=== PATIENT | male | born 1950 | race Caucasian/White ===

== ENCOUNTER 2017-09-25 06:40 | Day surgery (SDC) | payer MEDICARE, OTHER ==
[~2017-09-25] VITALS: Ht 170.2 cm; Wt 111.1 kg
[~2017-09-25 06:40] MED LIST: LISINOPRIL-HCT1 EACH PO; SIMVASTATIN40 MG PO
--- NOTE | 2017-09-25 09:33 | NUR ---
09/25/17 0933 Roseann Rothman 0925 PT ARRIVED IN PACU WIDE AWAKE. NO C/O'S.
[2017-09-25] MEDS ORDERED: OXYCODON-ACETA1 EAC2 PO (09:37)
[2017-09-25] MEDS ORDERED: IBUPROFEN600 MG PO (09:37)
[2017-09-25] MEDS ORDERED: MAPAP325 MG PO (09:37)
--- NOTE | 2017-09-26 22:41 | EKG ---
[facility] [address] [facility] [place] [address] Signed Normal sinus rhythm Normal ECG No previous ECGs available Confirmed by ARABELLA VÁZQUEZ MD ([id number]) on 09/26/2017 10:41:16 PM Electronically Signed By: ARABELLA VÁZQUEZ MD 09/26/17 2241 PATIENT NAME: JAVIER SIDHU Electrocardiogram DATE OF : 52 PHYSICIAN: ARABELLA VÁZQUEZ MD REPORT #: [id number] REPORT IS CONFIDENTIAL AND NOT TO BE RELEASED WITHOUT AUTHORIZATION
--- NOTE | 2017-10-11 14:11 | OR ---
[facility] [address] [facility] [place] [address] Signed DATE OF OPERATION: 09/25/2017 SURGEON: Javier Hernandes MD PREOPERATIVE DIAGNOSIS: Right posterior neck mass . POSTOPERATIVE DIAGNOSIS: Right posterior neck mass subfascial 4.5 cm, subfascial to posterior neck muscle compartment. PROCEDURE: Excision of right posterior subfascial soft tissue mass of neck with closure. ANESTHESIA: Intravenous sedation, Versed 5 mg, fentanyl 100 mcg and local 20 mL of 0.25% Marcaine. INDICATION: This 66-year-old white man is a patient of Dr. Lisa Mosley. He presents with a soft tissue mass of the posterior neck somewhat to the right side directly in the line of a skin crease. It is suggestive though not diagnostic of an epidermal inclusion cyst. He has no regional adenopathy. He is rather obese and given the size and location of the lesion, I have recommended excision in the operating room setting. The risks of bleeding, infection, recurrence and so forth were reviewed with him in detail. Notably, he does have sleep apnea, for which he uses a CPAP device. The patient had a small sip of coffee this morning and was deemed not a candidate for excessively deep sedation with propofol and therefore local anesthesia with some intravenous sedation was anticipated. FINDINGS: The mass was most consistent with a very large epidermal inclusion cyst. However, the mass and its inflammatory component extended down to the posterior fascia of the neck. Complete excision was undertaken. The lesion was approximately 4.5 cm in size. There is no rupture of the lesion. A good cosmetic result is noted. DESCRIPTION OF PROCEDURE: The patient was placed in the lateral decubitus position and administered intravenous sedation by a circulating nurse at the direction of the corner block cutter. The right posterior neck and thorax were clipped and prepared with a chlorhexidine solution and Electronically Signed By: JAVIER HERNANDES MD 10/11/17 1411 PATIENT NAME: JAVIER SIDHU OPERATIVE REPORT DATE OF : 52 REPORT #: [id number] PHYSICIAN: JAVIER HERNANDES MD PCP: LISA MOSLEY MD REPORT IS CONFIDENTIAL AND NOT TO BE RELEASED WITHOUT AUTHORIZATION [facility] [address] [place], [place] [address] Signed draped sterilely. Full cardiopulmonary monitoring was maintained. A 0.25% Marcaine with epinephrine was injected locally. Elliptical excision was undertaken including the skin above and below the skin crease. Dissection was carried through the dermis sharply. Impressively good sedation and local anesthesia was noted. Using electrocautery, the lesion was excised with all due care from the surrounding soft tissue down to the posterior muscle compartment of the neck. This was excised with all due deliberate care, ultimately excising it fully. It was impressively large for about 4.5 cm, I would estimate. The cavity was secured for hemostasis with electrocautery. Additional local anesthetic was then injected. The wound was closed in layers with interrupted 2-0 Vicryl and interrupted 3-0 Vicryl for the dermis. Steri-Strips were applied as was Mepilex silver sponge dressing and OpSite. Blood loss was essentially none. Sponge, needle, and instrument counts reported as correct x2. He was returned to a supine position where he promptly awakened and was taken to recovery room in good condition. MD LIYAH Javier/MODL /[id number] cc: Lisa Mosley MD Electronically Signed By: JAVIER HERNANDES MD 10/11/17 1411 PATIENT NAME: NAHUMJAVIER YADAV OPERATIVE REPORT DATE OF : 52 REPORT #: [id number] PHYSICIAN: JAVIER HERNANDES MD PCP: LISA MOSLEY MD REPORT IS CONFIDENTIAL AND NOT TO BE RELEASED WITHOUT AUTHORIZATION
== END 2017-09-25 09:55 | disposition home or self-care (01) ==
LOC: OPS 06:40 → DS 06:40 → OPS 08:00
PROVIDERS: Surgery
PROC: 0KB20ZZ Excision of Right Neck Muscle, Open Approach (ICD-10-PCS; principal; 2017-09-25 08:00)
DX: L72.0 Epidermal cyst (principal); L02.11 Cutaneous abscess of neck; I10 Essential (primary) hypertension; E66.01 Morbid (severe) obesity due to excess calories; Z98.890 Other specified postprocedural states; Z79.899 Other long term (current) drug therapy; Z68.38 Body mass index [BMI] 38.0-38.9, adult
CPT/HCPCS: 93005; 93010; 99153; G0500; J0690; J2250; J2704; J3010; J7120